=== PATIENT | male | born 1945 | race African-American/Black ===

== ENCOUNTER 2019-08-13 18:17 | Inpatient (IN) ==
[2019-08-13] MEDS ORDERED: TISSUE ADHESIVE 1 EACH APPLICATOR TOP ONE (19:18)
[2019-08-13 19:39] LABS: Basophils % 0.4 % (0.0-0.8); Eosinophils # 0.3 10*3/uL (0.0-0.87); Eosinophils % 2.6 % (0.00-10.9); Hematocrit 37.1 VOL% (42.0-52.0); Hemoglobin 12.3 GM/DL (14.0-18.0); Immature Granulocytes % 0.8 %; Immature Granulocytes Absolute 0.09 #; Lymphocytes % 17.5 % (21.2-54.2); Mean Corpuscular HGB Conc 33.2 GM/DL (32-36); Mean Corpuscular Volume 96.6 FL (87-102); Mean Platelet Volume 10.8 FL (9.6-12.0); Neutrophils % 71.7 % (38.7-73.9); Platelet Count 126 T/CUMM (130-400); Red Blood Count 3.84 MC/CUMM (3.8-5.5); Red Cell Distribution Width 12.1 % (9.3-17.3); White Blood Count 11.3 T/CUMM (4-12)
[2019-08-13 19:47] LABS: PT Patient Result 11.3 SECS (9.6-12.2); Partial Thromboplastin Time 21.4 SECS (20.8-36.0)
[2019-08-13] MEDS ORDERED: METOPROLOL TARTRATE 25 MG TABLET PO STA (19:49)
[2019-08-13 19:57] LABS: Albumin 3.1 G/DL (3.4-5.0); Bilirubin,Total 0.4 MG/DL (0.2-1.0); Calcium 8.5 MG/DL (8.5-10.1); Osmolality,Calculated 290.8 MOS/KG (273-304); Total Protein 7.9 G/DL (6.4-8.3)
[2019-08-13 20:00] LABS: Apearance,Urine CLOUDY (Clear); Bacteria,Urine Many /HPF (Few); Bilirubin,Urine Negative (Negative); Blood, Urine Small mg/dL (Negative); Glucose,Urine (UA) >=500 mg/dL (Negative); Ketones,Urine Negative (Negative); Mucus,Urine Occasional /LPF (Occasional); Nitrite,Urine Negative (Negative); Protein,Urine Negative; RBC,Urine 9 /HPF (0-4); Urine Color Yellow (Yellow); Urine Specific Gravity 1.024 (1.001-1.035); Urine Urobilinogen < 2.0 EU/DL (0.2-1.0); WBC,Urine 56 /HPF (0-6)
[2019-08-13 20:00] LABS: Platelet Estimate Adequate
[2019-08-14 07:17] LABS: Basophils % 0.2 % (0.0-0.8); Eosinophils # 0.3 10*3/uL (0.0-0.87); Eosinophils % 2.9 % (0.00-10.9); Hematocrit 36.3 VOL% (42.0-52.0); Hemoglobin 12.1 GM/DL (14.0-18.0); Immature Granulocytes % 0.4 %; Immature Granulocytes Absolute 0.05 #; Lymphocytes # 1.6 10*3/uL (1.4-4.0); Lymphocytes % 14.2 % (21.2-54.2); Mean Corpuscular HGB Conc 33.3 GM/DL (32-36); Mean Corpuscular Volume 96.3 FL (87-102); Mean Platelet Volume 10.7 FL (9.6-12.0); Monocytes % 7.5 % (1.7-12.7); Neutrophils % 74.8 % (38.7-73.9); Platelet Count 157 T/CUMM (130-400); Red Blood Count 3.77 MC/CUMM (3.8-5.5); Red Cell Distribution Width 12.1 % (9.3-17.3); White Blood Count 11.2 T/CUMM (4-12)
[2019-08-14 07:33] LABS: Albumin 2.8 G/DL (3.4-5.0); Bilirubin,Total 0.5 MG/DL (0.2-1.0); Calcium 8.4 MG/DL (8.5-10.1); Osmolality,Calculated 288.3 MOS/KG (273-304); Total Protein 7.3 G/DL (6.4-8.3)
[2019-08-14] MEDS ORDERED: hydrALAZINE 20 MG/1 ML VIAL IV PRN (09:48)
[2019-08-14] MEDS: METOPROLOL TARTRATE 25 MG TABLET PO SCH ×2 (10:55→21:16)
[2019-08-14] MEDS ORDERED: DEXTROSE 10% 250 ML BAG IV PRN (11:17)
[2019-08-14] MEDS ORDERED: GLUCAGON 1 MG VIAL IM PRN (11:17)
[2019-08-14] MEDS: INSULIN LISPRO 100 UNIT/ML SUBCUT SCH ×3 (12:53→21:17)
[2019-08-14] MEDS: cefTRIAXone 1,000 MG in SYRINGE 1 EACH IV SCH (12:57)
[2019-08-15 06:03] LABS: Basophils % 0.3 % (0.0-0.8); Eosinophils # 0.5 10*3/uL (0.0-0.87); Eosinophils % 4.1 % (0.00-10.9); Hematocrit 35.2 VOL% (42.0-52.0); Hemoglobin 11.5 GM/DL (14.0-18.0); Immature Granulocytes % 0.7 %; Immature Granulocytes Absolute 0.08 #; Lymphocytes # 2.2 10*3/uL (1.4-4.0); Lymphocytes % 19.3 % (21.2-54.2); Mean Corpuscular HGB Conc 32.7 GM/DL (32-36); Mean Corpuscular Volume 96.7 FL (87-102); Mean Platelet Volume 9.9 FL (9.6-12.0); Monocytes % 8.8 % (1.7-12.7); Neutrophils % 66.8 % (38.7-73.9); Platelet Count 161 T/CUMM (130-400); Red Blood Count 3.64 MC/CUMM (3.8-5.5); Red Cell Distribution Width 11.9 % (9.3-17.3); White Blood Count 11.3 T/CUMM (4-12)
[2019-08-15 06:18] LABS: Osmolality,Calculated 283.1 MOS/KG (273-304)
[2019-08-15] MEDS: METOPROLOL TARTRATE 25 MG TABLET PO SCH ×2 (06:34→08:01)
[2019-08-15] MEDS: INSULIN LISPRO 100 UNIT/ML SUBCUT SCH ×4 (07:04→20:22)
[2019-08-15] MEDS ORDERED: ceFAZolin 1,000 MG VIAL ONE (09:08)
[2019-08-15] MEDS ORDERED: propofoL 200 MG/20 ML VIAL IV ONE (10:29)
[2019-08-15] MEDS ORDERED: SEVOFLURANE 1 UNIT/15 MINUTE INH ONE (10:29)
[2019-08-15] MEDS ORDERED: fentaNYL 100 MCG/2 ML VIAL ONE (10:29)
[2019-08-15] MEDS ORDERED: LIDOCAINE 2% 5 ML VIAL ONE (10:29)
[2019-08-15] MEDS ORDERED: GLYCOPYRROLATE 0.4 MG/2 ML VIAL ONE (10:30)
[2019-08-15] MEDS ORDERED: ONDANSETRON 4 MG/2 ML VIAL ONE (10:30)
[2019-08-15] MEDS ORDERED: ESMOLOL 100 MG/10 ML VIAL IV ONE (10:30)
[2019-08-15] MEDS ORDERED: ETOMIDATE 40 MG/20 ML VIAL IV ONE (10:30)
[2019-08-15] MEDS ORDERED: PHENYLEPHRINE DRIP 20 MG/250 ML PREMIX IV ONE (10:30)
[2019-08-15] MEDS ORDERED: NEOSTIGMINE 10 MG/10 ML VIAL ONE (10:31)
[2019-08-15] MEDS ORDERED: PHENYLEPHRINE 1 MG/10 ML SYRINGE IV ONE (10:31)
[2019-08-15] MEDS ORDERED: ROCURONIUM 100 MG/10 ML VIAL IV ONE (10:31)
[2019-08-15] MEDS: cefTRIAXone 1,000 MG in SYRINGE 1 EACH IV SCH (11:35)
[2019-08-15] MEDS ORDERED: DIGOXIN 0.5 MG/2 ML AMP IV ONE (13:15)
[2019-08-15] MEDS: APIXABAN 5 MG TABLET PO SCH ×2 (14:01→20:23)
[2019-08-15] MEDS ORDERED: METOPROLOL TARTRATE 5 MG/5 ML VIAL IV PRN (16:35)
[2019-08-15] MEDS ORDERED: SODIUM CHLORIDE 0.9% 500 ML IV ONE (16:40)
[2019-08-15] MEDS: dilTIAZem Drip 125 MG/125 ML PREMIX IV SCH (17:11)
[2019-08-15] MEDS: METOPROLOL TARTRATE 100 MG TABLET PO SCH (20:23)
[2019-08-16] MEDS: dilTIAZem Drip 125 MG/125 ML PREMIX IV SCH (02:51)
[2019-08-16 06:24] LABS: Basophils % 0.3 % (0.0-0.8); Eosinophils # 0.2 10*3/uL (0.0-0.87); Eosinophils % 2.1 % (0.00-10.9); Hematocrit 31.2 VOL% (42.0-52.0); Immature Granulocytes % 0.8 %; Immature Granulocytes Absolute 0.09 #; Lymphocytes # 1.4 10*3/uL (1.4-4.0); Lymphocytes % 13.2 % (21.2-54.2); Mean Corpuscular HGB Conc 32.1 GM/DL (32-36); Mean Corpuscular Volume 96.9 FL (87-102); Mean Platelet Volume 10.6 FL (9.6-12.0); Monocytes % 11.6 % (1.7-12.7); Platelet Count 158 T/CUMM (130-400); Red Blood Count 3.22 MC/CUMM (3.8-5.5); Red Cell Distribution Width 11.9 % (9.3-17.3); White Blood Count 10.7 T/CUMM (4-12)
[2019-08-16 06:48] LABS: Calcium 7.6 MG/DL (8.5-10.1)
[2019-08-16] MEDS: METOPROLOL TARTRATE 100 MG TABLET PO SCH ×2 (08:15→21:29)
[2019-08-16] MEDS: DILTIAZEM 60 MG TABLET PO SCH ×4 (08:15→21:29)
[2019-08-16] MEDS: APIXABAN 5 MG TABLET PO SCH ×2 (08:15→21:29)
[2019-08-16] MEDS: INSULIN LISPRO 100 UNIT/ML SUBCUT SCH ×4 (08:16→22:52)
[2019-08-16] MEDS: cefTRIAXone 1,000 MG in SYRINGE 1 EACH IV SCH (12:23)
[2019-08-16] MEDS: OLANZapine 5 MG TABLET PO SCH (21:29)
[2019-08-16] MEDS: MORPHINE 4 MG/1 ML VIAL IV PRN (22:47)
[2019-08-17 05:12] LABS: Basophils % 0.2 % (0.0-0.8); Eosinophils # 0.2 10*3/uL (0.0-0.87); Eosinophils % 1.5 % (0.00-10.9); Hemoglobin 9.6 GM/DL (14.0-18.0); Immature Granulocytes Absolute 0.11 #; Lymphocytes # 1.6 10*3/uL (1.4-4.0); Lymphocytes % 14.2 % (21.2-54.2); Mean Corpuscular HGB Conc 33.1 GM/DL (32-36); Mean Corpuscular Volume 95.4 FL (87-102); Mean Platelet Volume 10.7 FL (9.6-12.0); Monocytes % 10.5 % (1.7-12.7); Neutrophils % 72.6 % (38.7-73.9); Platelet Count 174 T/CUMM (130-400); Red Blood Count 3.04 MC/CUMM (3.8-5.5); Red Cell Distribution Width 11.9 % (9.3-17.3); White Blood Count 11.4 T/CUMM (4-12)
[2019-08-17] MEDS: MORPHINE 4 MG/1 ML VIAL IV PRN ×2 (05:34→22:09)
[2019-08-17 05:42] LABS: Calcium 7.6 MG/DL (8.5-10.1); Osmolality,Calculated 281.1 MOS/KG (273-304)
[2019-08-17] MEDS: FOLIC ACID 1 MG TABLET PO SCH (09:28)
[2019-08-17] MEDS: INSULIN LISPRO 100 UNIT/ML SUBCUT SCH ×4 (09:28→22:10)
[2019-08-17] MEDS: OLANZapine 5 MG TABLET PO SCH ×2 (09:29→22:11)
[2019-08-17] MEDS: METOPROLOL TARTRATE 100 MG TABLET PO SCH ×2 (09:29→21:57)
[2019-08-17] MEDS: SERTRALINE 100 MG TABLET PO SCH (09:29)
[2019-08-17] MEDS: DILTIAZEM 60 MG TABLET PO SCH (09:29)
[2019-08-17] MEDS: APIXABAN 5 MG TABLET PO SCH ×2 (09:29→21:57)
[2019-08-17] MEDS ORDERED: AMIODARONE 150 MG/3 ML VIAL ONE (12:19)
[2019-08-17] MEDS ORDERED: AMIODARONE 450 MG/9 ML VIAL IV ONE (12:19)
[2019-08-17] MEDS: DILTIAZEM 90 MG TABLET PO SCH ×3 (12:36→21:57)
[2019-08-17] MEDS: cefTRIAXone 1,000 MG in SYRINGE 1 EACH IV SCH (12:36)
[2019-08-18] MEDS: MORPHINE 4 MG/1 ML VIAL IV PRN (03:38)
[2019-08-18 04:54] LABS: Basophils % 0.2 % (0.0-0.8); Eosinophils # 0.2 10*3/uL (0.0-0.87); Eosinophils % 1.9 % (0.00-10.9); Hematocrit 28.2 VOL% (42.0-52.0); Hemoglobin 9.4 GM/DL (14.0-18.0); Immature Granulocytes % 1.4 %; Immature Granulocytes Absolute 0.16 #; Lymphocytes # 1.5 10*3/uL (1.4-4.0); Lymphocytes % 13.2 % (21.2-54.2); Mean Corpuscular HGB Conc 33.3 GM/DL (32-36); Mean Corpuscular Volume 96.6 FL (87-102); Mean Platelet Volume 10.1 FL (9.6-12.0); Monocytes % 10.1 % (1.7-12.7); NRBC # 0.02 10*3/uL; Neutrophils % 73.2 % (38.7-73.9); Platelet Count 218 T/CUMM (130-400); Red Blood Count 2.92 MC/CUMM (3.8-5.5); White Blood Count 11.4 T/CUMM (4-12)
[2019-08-18 05:09] LABS: Calcium 7.8 MG/DL (8.5-10.1); Osmolality,Calculated 279.2 MOS/KG (273-304)
[2019-08-18] MEDS: FOLIC ACID 1 MG TABLET PO SCH (09:24)
[2019-08-18] MEDS: DILTIAZEM 90 MG TABLET PO SCH (09:24)
[2019-08-18] MEDS: SERTRALINE 100 MG TABLET PO SCH (09:25)
[2019-08-18] MEDS: ASCORBIC ACID 500 MG TABLET PO SCH ×2 (09:25→21:28)
[2019-08-18] MEDS: APIXABAN 5 MG TABLET PO SCH ×2 (09:25→21:28)
[2019-08-18] MEDS: OLANZapine 5 MG TABLET PO SCH ×2 (09:25→21:28)
[2019-08-18] MEDS: METOPROLOL TARTRATE 100 MG TABLET PO SCH ×2 (09:25→21:28)
[2019-08-18] MEDS: INSULIN LISPRO 100 UNIT/ML SUBCUT SCH ×4 (11:54→21:28)
[2019-08-18] MEDS: DILTIAZEM CD 240 MG CAPSULE PO SCH (12:19)
[2019-08-18] MEDS: cefTRIAXone 1,000 MG in SYRINGE 1 EACH IV SCH (12:20)
[2019-08-19 05:21] LABS: Basophils % 0.2 % (0.0-0.8); Eosinophils # 0.1 10*3/uL (0.0-0.87); Eosinophils % 1.4 % (0.00-10.9); Hematocrit 27.6 VOL% (42.0-52.0); Immature Granulocytes % 1.6 %; Immature Granulocytes Absolute 0.15 #; Lymphocytes # 0.9 10*3/uL (1.4-4.0); Lymphocytes % 9.9 % (21.2-54.2); Mean Corpuscular HGB Conc 32.6 GM/DL (32-36); Mean Corpuscular Volume 96.8 FL (87-102); Monocytes % 10.1 % (1.7-12.7); Neutrophils % 76.8 % (38.7-73.9); Platelet Count 226 T/CUMM (130-400); Red Blood Count 2.85 MC/CUMM (3.8-5.5); Red Cell Distribution Width 12.3 % (9.3-17.3); White Blood Count 9.2 T/CUMM (4-12)
[2019-08-19 05:44] LABS: Osmolality,Calculated 279.1 MOS/KG (273-304)
[2019-08-19] MEDS: INSULIN LISPRO 100 UNIT/ML SUBCUT SCH ×2 (09:07→12:46)
[2019-08-19] MEDS: DILTIAZEM CD 240 MG CAPSULE PO SCH (09:58)
[2019-08-19] MEDS: ASCORBIC ACID 500 MG TABLET PO SCH (09:59)
[2019-08-19] MEDS: APIXABAN 5 MG TABLET PO SCH (09:59)
[2019-08-19] MEDS: OLANZapine 5 MG TABLET PO SCH (09:59)
[2019-08-19] MEDS: SERTRALINE 100 MG TABLET PO SCH (09:59)
[2019-08-19] MEDS: FOLIC ACID 1 MG TABLET PO SCH (09:59)
[2019-08-19] MEDS: METOPROLOL TARTRATE 100 MG TABLET PO SCH (09:59)
[2019-08-19] MEDS ORDERED: AZITHROMYCIN 250 MG TABLET PO ONE (11:07)
[2019-08-19] MEDS: cefTRIAXone 1,000 MG in SYRINGE 1 EACH IV SCH (11:47)
[2019-08-19 12:08] VITALS: BP 103/59
[2019-08-20] MEDS ORDERED: AZITHROMYCIN 250 MG TABLET PO SCH (09:00)
== END 2019-08-19 16:05 | DRG 469 ==
LOC: EDUNIT# → EDBD → N.ED 18:17 → N.EDINP 19:30 → N.3E 20:06 → N.ICU 08-15 11:40 → N.TELES 08-16 18:50
PROVIDERS: ADMIT Internal Medicine; ATTEND Internal Medicine